=== PATIENT | female | born 1935 | race Caucasian/White ===

== ENCOUNTER 2020-12-31 17:50 | Emergency (ER) | payer MEDICARE, MEDICAID ==
[~2020-12-31] VITALS: Ht 165.1 cm; Wt 79.5 kg
[~2020-12-31 17:50] MED LIST: ATOR40TA PO; BUPR-94 PO; CELE200C PO; ESTR1TAB23 PO; LOSA1TAB3 PO; OMEP20CA15 PO; ONDA8TAB6 PO; SERT-153 PO
[2020-12-31] MEDS ORDERED: ondansetron/PF 4mg/2ml inj IV ONE (18:10)
[2020-12-31] MEDS ORDERED: normal saline 1000ml 1,000 ML IV ONE (18:10)
[2020-12-31 18:43] LABS: BASOPHILS % (AUTO) 0.4 % (0-1); EOSINOPHILS % (AUTO) 0.7 % (0-6); HEMATOCRIT 39.7 % (35.0-45.0); HEMOGLOBIN 13.2 g/dl (12.0-16.0); LYMPHOCYTES % (AUTO) 21.5 % (21-51); MEAN CORPUSCULAR HGB CONC 33.1 g/dL (33.0-36.5); MEAN CORPUSCULAR VOLUME 90.5 FL (78-98); MEAN PLATELET VOLUME 8.5 FL (7.4-10.4); MONOCYTES # (AUTO) 0.4 X10'3 (0-0.9); MONOCYTES % (AUTO) 7.7 % (2-12); NEUTROPHILS # (AUTO) 3.3 X10'3 (1.8-7.7); NEUTROPHILS % (AUTO) 69.7 % (42-75); PLATELET COUNT 199 X10'3 (140-440); RED BLOOD COUNT 4.39 X10'6 (4.20-5.60); RED CELL DISTRIBUTION WIDTH 13.7 % (11.5-14.5); WHITE BLOOD COUNT 4.7 X10'3 (4.5-11.0)
--- NOTE | 2020-12-31 18:53 | NUR ---
This signwriter is the break RN. IV NaCl 1 Litre established, patient was prepped for culture draw prior to pulling blood for labs, as a precaution. Patient tollerated IV well. One attempt, 20 ga to the right hand. IV Zofran given as ordered. Patient is cooperative. Daughter is at bedside.
[2020-12-31 18:57] LABS: ALANINE AMINOTRANSFERASE 13 U/L (12-78); ALBUMIN 3.3 G/DL (3.4-5.0); ALBUMIN/GLOBULIN RATIO 0.8 (1.1-1.5); ALKALINE PHOSPHATASE 108 IU/L (46-116); ANION GAP 12 (8-16); ASPARTATE AMINO TRANSFERASE 14 U/L (10-37); BILIRUBIN,TOTAL 0.4 MG/DL (0.1-1.0); BLOOD UREA NITROGEN 12 MG/DL (7-18); BUN/CREATININE RATIO 13.5 (6.6-38.0); CHLORIDE 104 MMOL/L (99-107); CREATININE 0.89 MG/DL (0.40-0.90); GLUCOSE 137 MG/DL (70-104); LIPASE 64 U/L (73-393); SODIUM 141 MMOL/L (135-145); TOTAL CARBON DIOXIDE 25.5 MMOL/L (24-32); TOTAL PROTEIN 7.4 G/DL (6.4-8.2); eGFR 60 ML/MIN
[2020-12-31 19:01] LABS: POTASSIUM 2.6 MMOL/L (3.5-5.1)
[2020-12-31] MEDS ORDERED: potassium Cl 20 mEq SR tablet PO ONE (19:05)
[2020-12-31] MEDS ORDERED: potassium Cl 10 mEq/100mL bag IV ONE (19:05)
[2020-12-31] MEDS ORDERED: ONDA4TAB6 PO (19:07)
[2020-12-31 19:55] LABS: CLARITY,URINE CLEAR (Clear); COLOR,URINE YELLOW (Yellow); GLUCOSE, URINE NEGATIVE (Neg); KETONES,URINE NEGATIVE (Neg); LEUKOCYTE ESTERASE ,URINE NEGATIVE (Neg); NITRITES, URINE NEGATIVE (Neg); OCCULT BLOOD,URINE NEGATIVE (Neg); PH,URINE 5.5 (4.8-8.0); PROTEIN,URINE TRACE mg/dl (Neg); UROBILINOGEN,URINE 0.2 E.U/dL (0.2-1.0)
[2020-12-31 20:05] LABS: UA COLLECTION TYPE CLN CATCH MIDSTREAM
[2020-12-31 20:08] LABS: BACTERIA,URINE NONE SEEN /HPF (Neg); RBC,URINE NONE SEEN /HPF (0-2); SQUAMOUS EPITHELIAL CELL,UR FEW /LPF (FEW); WBC,URINE NONE SEEN /HPF (0-4)
[2020-12-31 21:17] VITALS: BP 124/70
== END 2020-12-31 21:18 | disposition home or self-care (01) ==
LOC: ER 17:51
DX: A08.4 Viral intestinal infection, unspecified (principal); E87.6 Hypokalemia; J45.909 Unspecified asthma, uncomplicated; E78.00 Pure hypercholesterolemia, unspecified; Z88.8 Allergy status to other drugs, medicaments and biological substances; Z20.822 Contact with and (suspected) exposure to COVID-19
CPT/HCPCS: 36415; 71045; 80053; 81001; 83690; 85025; 87635; 96361; 96365; 96375; 99284; C9803; J2405; J3480; J7030

== ENCOUNTER 2021-07-11 16:38 | Emergency (ER) | payer MEDICARE, MEDICAID ==
[~2021-07-11] VITALS: Ht 162.6 cm; Wt 75.0 kg
[~2021-07-11 16:38] MED LIST changes: +ONDA4TAB6 PO
[2021-07-11 17:47] VITALS: BP 151/97
== END 2021-07-11 17:56 | disposition home or self-care (01) ==
LOC: ER 16:39
DX: M54.9 Dorsalgia, unspecified (principal); F03.91 Unspecified dementia, unspecified severity, with behavioral disturbance; E78.00 Pure hypercholesterolemia, unspecified; J44.9 Chronic obstructive pulmonary disease, unspecified; Z88.8 Allergy status to other drugs, medicaments and biological substances; Z91.041 Radiographic dye allergy status; Z79.899 Other long term (current) drug therapy; W19.XXXA Unspecified fall, initial encounter; Z91.81 History of falling; Y93.89 Activity, other specified; Y92.89 Other specified places as the place of occurrence of the external cause; Y99.8 Other external cause status
CPT/HCPCS: 99284

== ENCOUNTER 2021-11-18 20:16 | Emergency (ER) | payer MEDICARE, MEDICAID ==
[~2021-11-18] VITALS: Ht 165.1 cm; Wt 81.8 kg
[2021-11-18] MEDS ORDERED: normal saline 1000ML IV soln IVB ONE ×2 (21:35→22:30)
[2021-11-18 21:42] LABS: CLARITY,URINE CLEAR (Clear); COLOR,URINE YELLOW (Yellow); GLUCOSE, URINE NEGATIVE (Neg); KETONES,URINE NEGATIVE (Neg); LEUKOCYTE ESTERASE ,URINE NEGATIVE (Neg); NITRITES, URINE NEGATIVE (Neg); OCCULT BLOOD,URINE NEGATIVE (Neg); PROTEIN,URINE 30 mg/dl (Neg); UROBILINOGEN,URINE 0.2 E.U/dL (0.2-1.0)
[2021-11-18 21:43] LABS: UA COLLECTION TYPE CLN CATCH MIDSTREAM
[2021-11-18] MEDS ORDERED: ondansetron/PF 4mg/2ml inj IV ONE (21:45)
[2021-11-18 21:54] LABS: BASOPHILS % (AUTO) 0.3 % (0-1); EOSINOPHILS % (AUTO) 0 % (0-6); HEMOGLOBIN 13.2 g/dl (12.0-16.0); LYMPHOCYTES # (AUTO) 0.7 X10'3 (1.1-4.8); LYMPHOCYTES % (AUTO) 16.9 % (21-51); MEAN CORPUSCULAR HEMOGLOBIN 28.7 PG (27.0-31.0); MEAN CORPUSCULAR HGB CONC 32.9 g/dL (33.0-36.5); MEAN CORPUSCULAR VOLUME 87.3 FL (78-98); MEAN PLATELET VOLUME 9.7 FL (7.4-10.4); MONOCYTES % (AUTO) 22.4 % (2-12); NEUTROPHILS # (AUTO) 2.7 X10'3 (1.8-7.7); NEUTROPHILS % (AUTO) 60.4 % (42-75); PLATELET COUNT 139 X10'3 (140-440); RED BLOOD COUNT 4.59 X10'6 (4.20-5.60); RED CELL DISTRIBUTION WIDTH 14.2 % (11.5-14.5); WHITE BLOOD COUNT 4.4 X10'3 (4.5-11.0)
[2021-11-18 21:56] LABS: BACTERIA,URINE FEW /HPF (Neg); COARSE GRANULAR CAST 0-3 /LPF (NEGATIVE); RBC,URINE 0-2 /HPF (0-2); SQUAMOUS EPITHELIAL CELL,UR FEW /LPF (FEW); WBC,URINE 0-4 /HPF (0-4)
[2021-11-18 22:10] LABS: ALANINE AMINOTRANSFERASE 12 U/L (12-78); ALBUMIN 2.8 G/DL (3.4-5.0); ALBUMIN/GLOBULIN RATIO 0.6 (1.1-1.5); ALKALINE PHOSPHATASE 81 IU/L (46-116); ANION GAP 11 (8-16); ASPARTATE AMINO TRANSFERASE 28 U/L (10-37); BILIRUBIN,TOTAL 0.3 MG/DL (0.1-1.0); BLOOD UREA NITROGEN 19 MG/DL (7-18); BUN/CREATININE RATIO 14.8 (6.6-38.0); CALCIUM 7.9 MG/DL (8.5-10.1); CHLORIDE 104 MMOL/L (99-107); CREATININE 1.28 MG/DL (0.40-0.90); GLUCOSE 158 MG/DL (70-104); LIPASE 108 U/L (73-393); POTASSIUM 3.3 MMOL/L (3.5-5.1); SODIUM 138 MMOL/L (135-145); TOTAL CARBON DIOXIDE 23.5 MMOL/L (24-32); TOTAL PROTEIN 7.3 G/DL (6.4-8.2); eGFR 40 ML/MIN
[2021-11-18] MEDS ORDERED: loperamide 2mg capsule PO ONE (22:30)
[2021-11-18] MEDS ORDERED: pantoprazole 40MG/NS 100ML BAG 100 ML IV ONE (22:55)
--- NOTE | 2021-11-18 23:20 | NUR ---
Pt pink, alert, no acute/resp distress. PIV site c/d/i s complication, adverse, or infilitration. Family at bedside. Bed in lowest position, wheels locked, rail 2/2 up. Pt laying supine, able to move in bed prn.
[2021-11-18 23:22] LABS: PLATELET ESTIMATE DECREASED; TOTAL CELLS COUNTED 100
[2021-11-19] MEDS ORDERED: acetaminophen 325mg tablet PO ONE (00:50)
[2021-11-19] MEDS ORDERED: predniSONE 20 mg tablet PO ONE (01:10)
[2021-11-19] MEDS ORDERED: ondansetron 4mg rapidly disintigrating tab PO ONE (01:10)
[2021-11-19] MEDS ORDERED: BEBTELOVIMAB 175 MG/2 ML VIAL IV ONE (01:10)
[2021-11-19] MEDS ORDERED: diphenhydrAMINE 50 mg/ml inj IV PRN (01:10)
[2021-11-19] MEDS ORDERED: hydrocortisone sod succ/PF 100mg/2ml inj. IV PRN (01:10)
[2021-11-19] MEDS ORDERED: epiNEPHrine 1 mg/ml inj IM PRN (01:10)
[2021-11-19] MEDS ORDERED: albuterol 2.5 MG/3 ML nebule NEB PRN (01:10)
[2021-11-19] MEDS ORDERED: famotidine/PF 10 mg/ml inj IV PRN (01:10)
[2021-11-19] MEDS ORDERED: acetaminophen 325mg tablet PO PRN (01:10)
[2021-11-19] MEDS ORDERED: LOPE2CAP PO (01:15)
[2021-11-19] MEDS ORDERED: ONDA8TAB13 PO (01:15)
[2021-11-19] MEDS ORDERED: DEXA4TAB67 PO (01:15)
[2021-11-19 03:21] VITALS: BP 135/78
--- NOTE | 2021-11-20 08:16 | NUR ---
Spoke with Dr. leyva regarding blood culture results, he stated that at this point it was to soon to tell if it was a contaminate or not so we need to wait til the sensitive report. Nothing to do at this point.
== END 2021-11-19 03:23 | disposition home or self-care (01) ==
LOC: ER 20:17
DX: U07.1 COVID-19 (principal); R53.1 Weakness; E78.00 Pure hypercholesterolemia, unspecified; J44.9 Chronic obstructive pulmonary disease, unspecified; E03.9 Hypothyroidism, unspecified; Z90.710 Acquired absence of both cervix and uterus; Z88.8 Allergy status to other drugs, medicaments and biological substances; Z91.041 Radiographic dye allergy status; Z79.899 Other long term (current) drug therapy
CPT/HCPCS: 36415; 71045; 80053; 81001; 83605; 83690; 84145; 84484; 85007; 85025; 87040; 87077; 87186; 87502; 87503; 87635; 93005; 96361; 96374; 96375; 99285; C9113; C9803; J2405; J7030; J7512; M0222; Q0222; 96365

== ENCOUNTER 2021-11-24 08:29 | Inpatient (IN) | payer MEDICARE, MEDICAID ==
[~2021-11-24] VITALS: Ht 166.4 cm; Wt 65.9 kg
[~2021-11-24 08:29] MED LIST changes: +DEXA4TAB67 PO; +LOPE2CAP PO; +ONDA8TAB13 PO
[2021-11-24] MEDS ORDERED: normal saline 1000ML IV soln IVB ONE ×2 (08:55→10:45)
--- NOTE | 2021-11-24 09:02 | NUR ---
Patient given two warm blankets.
[2021-11-24 09:12] LABS: BASOPHILS % (AUTO) 0.2 % (0-1); EOSINOPHILS % (AUTO) 0 % (0-6); HEMATOCRIT 37.8 % (35.0-45.0); HEMOGLOBIN 12.6 g/dl (12.0-16.0); LYMPHOCYTES # (AUTO) 0.9 X10'3 (1.1-4.8); MEAN CORPUSCULAR HEMOGLOBIN 28.4 PG (27.0-31.0); MEAN CORPUSCULAR HGB CONC 33.2 g/dL (33.0-36.5); MEAN CORPUSCULAR VOLUME 85.5 FL (78-98); MEAN PLATELET VOLUME 9.6 FL (7.4-10.4); MONOCYTES # (AUTO) 2.1 X10'3 (0-0.9); MONOCYTES % (AUTO) 11.7 % (2-12); NEUTROPHILS # (AUTO) 14.6 X10'3 (1.8-7.7); NEUTROPHILS % (AUTO) 83.1 % (42-75); PLATELET COUNT 161 X10'3 (140-440); RED BLOOD COUNT 4.42 X10'6 (4.20-5.60); RED CELL DISTRIBUTION WIDTH 13.8 % (11.5-14.5); WHITE BLOOD COUNT 17.6 X10'3 (4.5-11.0)
[2021-11-24 09:23] LABS: ALBUMIN 2.3 G/DL (3.4-5.0); ANION GAP 12 (8-16); BILIRUBIN,TOTAL 0.9 MG/DL (0.1-1.0); BLOOD UREA NITROGEN 16 MG/DL (7-18); BUN/CREATININE RATIO 16.3 (6.6-38.0); CHLORIDE 105 MMOL/L (99-107); CREATININE 0.98 MG/DL (0.40-0.90); GLUCOSE 102 MG/DL (70-104); SODIUM 141 MMOL/L (135-145); TOTAL CARBON DIOXIDE 24.1 MMOL/L (24-32); TOTAL PROTEIN 6.9 G/DL (6.4-8.2); eGFR 54 ML/MIN
[2021-11-24 09:24] LABS: ALANINE AMINOTRANSFERASE 16 U/L (12-78); ALBUMIN/GLOBULIN RATIO 0.5 (1.1-1.5); ALKALINE PHOSPHATASE 79 IU/L (46-116); ASPARTATE AMINO TRANSFERASE 25 U/L (10-37)
[2021-11-24] MEDS ORDERED: azithromycin/NS 500mg/250ml 250 ML IV ONE (09:25)
[2021-11-24] MEDS ORDERED: CefTRIAXone 2gm/D5W 50ml BAG 50 ML IV ONE (09:25)
[2021-11-24 09:31] LABS: POTASSIUM 2.6 MMOL/L (3.5-5.1)
[2021-11-24] MEDS ORDERED: CefTRIAXone 2gm/NS 100ml IVPB 100 ML IV ONE ×2 (09:34→09:36)
[2021-11-24] MEDS ORDERED: potassium Cl 20 mEq SR tablet PO ONE (09:35)
[2021-11-24 09:44] LABS: MAGNESIUM 1.3 MG/DL (1.5-2.4)
[2021-11-24] MEDS ORDERED: diltiazem 5mg/ml 5ml inj. IV ONE ×2 (10:05→11:20)
[2021-11-24] MEDS ORDERED: magnesium 2GM in 50ml NS 50 ML IV ONE (10:05)
[2021-11-24 10:17] LABS: CLARITY,URINE CLOUDY (Clear); COLOR,URINE YELLOW (Yellow); GLUCOSE, URINE NEGATIVE (Neg); KETONES,URINE TRACE mg/dl (Neg); LEUKOCYTE ESTERASE ,URINE NEGATIVE (Neg); NITRITES, URINE NEGATIVE (Neg); OCCULT BLOOD,URINE NEGATIVE (Neg); PROTEIN,URINE 100 mg/dl (Neg)
[2021-11-24 10:19] LABS: UA COLLECTION TYPE STRAIGHT CATH
[2021-11-24 10:30] LABS: SQUAMOUS EPITHELIAL CELL,UR FEW /LPF (FEW)
[2021-11-24 10:31] LABS: BACTERIA,URINE 4+ /HPF (Neg); RBC,URINE 0-2 /HPF (0-2); WBC,URINE 0-4 /HPF (0-4)
[2021-11-24] MEDS ORDERED: acetaminophen 325mg tablet PO PRN ×2 (10:40)
[2021-11-24] MEDS ORDERED: HYDROcodone/acetaminophen 10/325mg tab PO PRN (10:40)
[2021-11-24] MEDS ORDERED: magnesium Cl slow-release 64mg tablet PO PRN (10:40)
[2021-11-24] MEDS ORDERED: mag hydrox/Alum hydrox/simeth 30ml oral suspension PO PRN (10:40)
[2021-11-24] MEDS ORDERED: magnesium 2GM in 50ml NS 50 ML IV PRN (10:40)
[2021-11-24] MEDS ORDERED: magnesium 4gm in 100ml NS 100 ML IV PRN (10:40)
[2021-11-24] MEDS ORDERED: ipratropium/albuterol 3ml nebule NEB PRN (10:40)
[2021-11-24] MEDS ORDERED: ondansetron/PF 4mg/2ml inj IV PRN (10:40)
[2021-11-24] MEDS ORDERED: HYDROcodone/acetaminophen 5mg/325mg tablet PO PRN (10:40)
[2021-11-24] MEDS ORDERED: POTASSIUM BICARB 20meq eff tab 20 MEQ TABLET.EFF PO PRN ×2 (10:40)
[2021-11-24] MEDS ORDERED: magnesium hydroxide 30ml (MOM) UD suspension PO PRN (10:40)
[2021-11-24 11:09] LABS: PLATELET ESTIMATE NORMAL; TOTAL CELLS COUNTED 100
[2021-11-24 11:13] LABS: BURR CELLS FEW; ELLIPTOCYTES FEW
[2021-11-24 11:23] LABS: HEMOGLOBIN A1C 6.6 % (4.5-6.2)
[2021-11-24] MEDS: potassium CL 10mEq/100ml bag 100 ML IV SCH ×2 (11:36→12:59)
--- NOTE | 2021-11-24 14:05 | NUR ---
Pt had a orange/brown liquid BM.
[2021-11-24] MEDS ORDERED: MONT10TA21 PO (15:40)
[2021-11-24] MEDS ORDERED: LOPE2CAP PO (16:36)
[2021-11-24] MEDS ORDERED: ONDA8TAB6 PO (16:36)
[2021-11-24] MEDS: methylPREDNISolone sod succ 125mg/2ml vial IV SCH ×2 (16:54→23:26)
[2021-11-24] MEDS: K and/or MAG REPLACEMENT MC SCH (20:00)
[2021-11-24] MEDS: docusate sod 100mg capsule PO SCH (20:00)
--- NOTE | 2021-11-24 20:15 | NUR ---
The patient, OFELIA HUSSEIN, 86 y/o, F admitted by ELIEZER TRAORE MD, was given verbal information regarding hospital policies, unit procedures and contact persons. Patient arrived at 20:10 via stretcher from ED, with 5L via nasal canula, two peripheral IVs and incontinent of stool. Patient placed on droplet and contact precautions. See Admission information.
[2021-11-24 20:30] VITALS: BP 148/84
[2021-11-24] MEDS: potassium CL 10mEq/100ml bag 100 ML IV PRN ×3 (21:01→23:27)
[2021-11-24 22:00] VITALS: BP 147/82
[2021-11-25] VITALS (8 sets, daily range): BP systolic 144–177; BP diastolic 72–105
[2021-11-25] MEDS: potassium CL 10mEq/100ml bag 100 ML IV PRN (01:21)
[2021-11-25 06:15] LABS: BASOPHILS % (AUTO) 0.1 % (0-1); EOSINOPHILS % (AUTO) 0 % (0-6); HEMOGLOBIN 11.8 g/dl (12.0-16.0); LYMPHOCYTES # (AUTO) 0.5 X10'3 (1.1-4.8); LYMPHOCYTES % (AUTO) 4.5 % (21-51); MEAN CORPUSCULAR HEMOGLOBIN 28.6 PG (27.0-31.0); MEAN CORPUSCULAR HGB CONC 32.9 g/dL (33.0-36.5); MEAN PLATELET VOLUME 10.5 FL (7.4-10.4); MONOCYTES # (AUTO) 0.3 X10'3 (0-0.9); MONOCYTES % (AUTO) 2.4 % (2-12); NEUTROPHILS # (AUTO) 10.3 X10'3 (1.8-7.7); PLATELET COUNT 140 X10'3 (140-440); RED BLOOD COUNT 4.13 X10'6 (4.20-5.60); RED CELL DISTRIBUTION WIDTH 14.2 % (11.5-14.5); WHITE BLOOD COUNT 11.1 X10'3 (4.5-11.0)
--- NOTE | 2021-11-25 06:18 | NUR ---
Problems reprioritized. Patient report given, questions answered & plan of care reviewed with DERICK Oakes.
[2021-11-25 06:26] LABS: ALANINE AMINOTRANSFERASE 14 U/L (12-78); ALBUMIN 2.1 G/DL (3.4-5.0); ALBUMIN/GLOBULIN RATIO 0.5 (1.1-1.5); ALKALINE PHOSPHATASE 76 IU/L (46-116); ANION GAP 13 (8-16); ASPARTATE AMINO TRANSFERASE 17 U/L (10-37); BILIRUBIN,TOTAL 0.5 MG/DL (0.1-1.0); BLOOD UREA NITROGEN 22 MG/DL (7-18); BUN/CREATININE RATIO 27.2 (6.6-38.0); CALCIUM 7.6 MG/DL (8.5-10.1); CHLORIDE 109 MMOL/L (99-107); CHOL/HDL RATIO 1.8 (0.00-4.99); CHOLESTEROL 99 MG/DL (0-200); CREATININE 0.81 MG/DL (0.40-0.90); GLUCOSE 164 MG/DL (70-104); HDL CHOLESTEROL 56 MG/DL (35-60); LDL CHOLESTEROL 27 MG/DL (50-100); MAGNESIUM 1.5 MG/DL (1.5-2.4); POTASSIUM 3.7 MMOL/L (3.5-5.1); SODIUM 142 MMOL/L (135-145); TOTAL CARBON DIOXIDE 19.7 MMOL/L (24-32); TOTAL PROTEIN 6.7 G/DL (6.4-8.2); TRIGLYCERIDES 76 MG/DL (20-135); eGFR 67 ML/MIN
[2021-11-25] MEDS: docusate sod 100mg capsule PO SCH ×2 (08:00→19:14)
[2021-11-25] MEDS: K and/or MAG REPLACEMENT MC SCH ×2 (08:00→18:07)
[2021-11-25] MEDS: azithromycin/NS 500mg/250ml 250 ML IV SCH (08:00)
[2021-11-25] MEDS ORDERED: enoxaparin 40mg/0.4ml syringe SUBCUT SCH (08:00)
[2021-11-25] MEDS: methylPREDNISolone sod succ 125mg/2ml vial IV SCH ×3 (08:01→23:16)
[2021-11-25] MEDS: cefTRIAXone 1g/NS 100ml IVPB 100 ML IV SCH (08:01)
[2021-11-26] VITALS (7 sets, daily range): BP systolic 146–168; BP diastolic 74–96
[2021-11-26 06:12] LABS: EOSINOPHILS % (AUTO) 0 % (0-6); MEAN CORPUSCULAR HGB CONC 33.7 g/dL (33.0-36.5); MONOCYTES # (AUTO) 0.5 X10'3 (0-0.9); MONOCYTES % (AUTO) 4.8 % (2-12); PLATELET COUNT 167 X10'3 (140-440); RED CELL DISTRIBUTION WIDTH 14.1 % (11.5-14.5)
[2021-11-26 06:15] LABS: BASOPHILS % (AUTO) 0.4 % (0-1); HEMATOCRIT 35.9 % (35.0-45.0); HEMOGLOBIN 12.1 g/dl (12.0-16.0); LYMPHOCYTES # (AUTO) 0.4 X10'3 (1.1-4.8); LYMPHOCYTES % (AUTO) 4.6 % (21-51); MEAN PLATELET VOLUME 9.6 FL (7.4-10.4); NEUTROPHILS # (AUTO) 8.6 X10'3 (1.8-7.7); NEUTROPHILS % (AUTO) 90.2 % (42-75); RED BLOOD COUNT 4.18 X10'6 (4.20-5.60); WHITE BLOOD COUNT 9.6 X10'3 (4.5-11.0)
[2021-11-26 06:27] LABS: ALANINE AMINOTRANSFERASE 11 U/L (12-78); ALBUMIN/GLOBULIN RATIO 0.5 (1.1-1.5); ALKALINE PHOSPHATASE 70 IU/L (46-116); ANION GAP 10 (8-16); BILIRUBIN,TOTAL 0.4 MG/DL (0.1-1.0); BLOOD UREA NITROGEN 23 MG/DL (7-18); BUN/CREATININE RATIO 34.3 (6.6-38.0); CALCIUM 7.7 MG/DL (8.5-10.1); CHLORIDE 105 MMOL/L (99-107); CREATININE 0.67 MG/DL (0.40-0.90); GLUCOSE 220 MG/DL (70-104); MAGNESIUM 1.6 MG/DL (1.5-2.4); SODIUM 137 MMOL/L (135-145); TOTAL PROTEIN 6.4 G/DL (6.4-8.2); eGFR 84 ML/MIN
[2021-11-26 06:29] LABS: ASPARTATE AMINO TRANSFERASE 22 U/L (10-37); POTASSIUM 3.7 MMOL/L (3.5-5.1)
[2021-11-26 06:36] LABS: BURR CELLS 1+; ELLIPTOCYTES FEW; PLATELET ESTIMATE NORMAL; TOTAL CELLS COUNTED 100
--- NOTE | 2021-11-26 07:00 | NUR ---
Patient in room PCU 3008. I have received report from DERICK Martinez and had the opportunity to ask questions and assume patient care.
--- NOTE | 2021-11-26 07:08 | NUR ---
Problems reprioritized. Patient report given, questions answered & plan of care reviewed with DERICK Botello.
[2021-11-26] MEDS: docusate sod 100mg capsule PO SCH ×2 (08:00→19:51)
[2021-11-26] MEDS: K and/or MAG REPLACEMENT MC SCH ×2 (08:00→19:43)
--- NOTE | 2021-11-26 08:47 | NUR ---
Noted pt with a low Sam of 12. Per RN skin assessment skin is intact. Will continue to follow closely and make recommendations as appropriate. Addendum: 11/26/21 at [address] Amended: Links added.
[2021-11-26] MEDS: cefTRIAXone 1g/NS 100ml IVPB 100 ML IV SCH (12:11)
[2021-11-26] MEDS: methylPREDNISolone sod succ 125mg/2ml vial IV SCH ×3 (12:12→23:29)
[2021-11-26] MEDS: azithromycin/NS 500mg/250ml 250 ML IV SCH (12:12)
[2021-11-26] MEDS: hydrALAZINE 20mg/ml inj. IV PRN (12:12)
--- NOTE | 2021-11-26 15:02 | NUR ---
please have nursing take photo of fissure to gluteal crease Addendum: 11/26/21 at 1516 by Abbey Del Rio RN Amended: Links added.
[2021-11-26] MEDS ORDERED: REMDESIVIR 200 MG in NS 100ml IVPB Loading dose IV ONE (18:05)
--- NOTE | 2021-11-26 18:30 | NUR ---
Problems reprioritized. Patient report given, questions answered & plan of care reviewed with DERICK Clayton.
[2021-11-26] MEDS ORDERED: enoxaparin 40mg/0.4ml syringe SUBCUT SCH (20:00)
[2021-11-27 02:00] VITALS: BP 174/90
--- NOTE | 2021-11-27 06:40 | NUR ---
Patient in room PCU 3008. I have received report from DERICK Clayton and had the opportunity to ask questions and assume patient care.
--- NOTE | 2021-11-27 06:43 | NUR ---
Problems reprioritized. Patient report given, questions answered & plan of care reviewed with DERICK Botello.
[2021-11-27 07:00] VITALS: BP 173/95
[2021-11-27 07:29] LABS: BASOPHILS % (AUTO) 0.1 % (0-1); EOSINOPHILS % (AUTO) 0 % (0-6); HEMATOCRIT 33.3 % (35.0-45.0); HEMOGLOBIN 11.1 g/dl (12.0-16.0); LYMPHOCYTES # (AUTO) 0.4 X10'3 (1.1-4.8); LYMPHOCYTES % (AUTO) 6.1 % (21-51); MEAN CORPUSCULAR HEMOGLOBIN 28.5 PG (27.0-31.0); MEAN CORPUSCULAR HGB CONC 33.4 g/dL (33.0-36.5); MEAN CORPUSCULAR VOLUME 85.5 FL (78-98); MEAN PLATELET VOLUME 9.7 FL (7.4-10.4); MONOCYTES # (AUTO) 0.4 X10'3 (0-0.9); NEUTROPHILS # (AUTO) 5.6 X10'3 (1.8-7.7); NEUTROPHILS % (AUTO) 87.8 % (42-75); PLATELET COUNT 161 X10'3 (140-440); RED CELL DISTRIBUTION WIDTH 13.9 % (11.5-14.5); WHITE BLOOD COUNT 6.4 X10'3 (4.5-11.0)
[2021-11-27 07:49] LABS: ALANINE AMINOTRANSFERASE 14 U/L (12-78); ALBUMIN 1.9 G/DL (3.4-5.0); ALBUMIN/GLOBULIN RATIO 0.5 (1.1-1.5); ALKALINE PHOSPHATASE 61 IU/L (46-116); ANION GAP 9 (8-16); ASPARTATE AMINO TRANSFERASE 16 U/L (10-37); BILIRUBIN,TOTAL 0.3 MG/DL (0.1-1.0); BLOOD UREA NITROGEN 19 MG/DL (7-18); BUN/CREATININE RATIO 28.8 (6.6-38.0); CALCIUM 7.5 MG/DL (8.5-10.1); CHLORIDE 107 MMOL/L (99-107); CREATININE 0.66 MG/DL (0.40-0.90); GLUCOSE 178 MG/DL (70-104); MAGNESIUM 1.5 MG/DL (1.5-2.4); SODIUM 139 MMOL/L (135-145); TOTAL CARBON DIOXIDE 22.6 MMOL/L (24-32); TOTAL PROTEIN 5.9 G/DL (6.4-8.2); eGFR 85 ML/MIN
[2021-11-27 08:03] LABS: PLATELET ESTIMATE NORMAL; TOTAL CELLS COUNTED 100
[2021-11-27 08:04] LABS: ELLIPTOCYTES FEW; MICROCYTOSIS 1+
[2021-11-27] MEDS: K and/or MAG REPLACEMENT MC SCH (09:57)
[2021-11-27] MEDS: cefTRIAXone 1g/NS 100ml IVPB 100 ML IV SCH (10:09)
[2021-11-27] MEDS: docusate sod 100mg capsule PO SCH (10:10)
[2021-11-27] MEDS: azithromycin/NS 500mg/250ml 250 ML IV SCH (10:10)
[2021-11-27] MEDS: methylPREDNISolone sod succ 125mg/2ml vial IV SCH (10:10)
[2021-11-27] MEDS: hydrALAZINE 20mg/ml inj. IV PRN (10:10)
[2021-11-27 11:00] VITALS: BP 114/66
[2021-11-27] MEDS ORDERED: losartan 50mg tablet PO SCH (11:00)
--- NOTE | 2021-11-27 13:53 | NUR ---
I SPOKE WITH PATIENT'S DAUGHTER IN PRESENCE OF PRIMARY RN-OTILIA DAUGHTER WISHES PATIENT TO BE PLACED ON COMFORT CARE. DR QUICK NOTIFIED.
--- NOTE | 2021-11-27 18:30 | NUR ---
Problems reprioritized. Patient report given, questions answered & plan of care reviewed with DERICK Jackson.
[2021-11-27] MEDS ORDERED: REMDESIVIR INJ 100 MG in normal saline 100ml IV soln 100 ML IV SCH (19:00)
[2021-11-27] MEDS ORDERED: dexamethasone 4mg/ml inj IM SCH (20:00)
--- NOTE | 2021-11-28 06:20 | NUR ---
Patient in room PCU 3008. I have received report from DERICK Jackson and had the opportunity to ask questions and assume patient care.
[2021-11-28] MEDS ORDERED: azithromycin 250mg tablet PO SCH (08:00)
--- NOTE | 2021-11-28 18:35 | NUR ---
Problems reprioritized. Patient report given, questions answered & plan of care reviewed with DERICK Jackson.
--- NOTE | 2021-11-28 20:23 | NUR ---
Esther liu MD (Dr. Chau) at 2021 regarding the need for pain meds. Patient is comfort care and states she is in pain and uncomfortable.
[2021-11-29 02:27] VITALS: BP 136/89
--- NOTE | 2021-11-29 06:38 | NUR ---
Problems reprioritized. Patient report given, Nevaeh SEPULVEDA, questions answered & plan of care reviewed with .
--- NOTE | 2021-11-29 12:35 | NUR ---
Patient continues to have a low Sam score. Wound care deferred today secondary to the family's wishes that there wound not be any turning or repositioning with the exception of making the patient more comfortable. Wound care will continue to monitor her progress. Addendum: 11/29/21 at 1248 by Nevaeh Coombs LVN Amended: Links added.
[2021-11-29 21:00] VITALS: BP 128/77
[2021-11-29] MEDS: morphine 2 MG/ML inj. syringe IV PRN (21:50)
--- NOTE | 2021-11-29 22:32 | NUR ---
Celine care completed, bed linens changed. Pt voiced she is in pain. Administered PRN morphine per order. Pt made comfortable in bed.
--- NOTE | 2021-11-30 06:13 | NUR ---
Problems reprioritized. Patient report given, Nevaeh SEPULVEDA, questions answered & plan of care reviewed with .
[2021-11-30] MEDS: morphine 2 MG/ML inj. syringe IV PRN (19:19)
--- NOTE | 2021-12-01 10:05 | NUR ---
1000 pt discharged by ambulance, left at 1000. Pt a/ox3, forgetful at times. BM this morning. Right hand painful to touch from IV that went bad. Pt cleaned and brief placed on patient prior to discharge. No personal belongings in room. Family called. discharge packet sent with transporters. IV removed intact from right forearm.
== END 2021-12-01 10:02 | disposition hospice, home (50) | DRG 871 ==
LOC: ER 08:30 → ED HOLD 10:47 → PCU 3S 20:10
PROVIDERS: ADMIT Internal Medicine; ATTEND Internal Medicine
PROC: XW033E5 Introduction of Remdesivir Anti-infective into Peripheral Vein, Percutaneous Approach, New Technology Group 5 (ICD-10-PCS; principal; 2021-11-26)
DX: A41.9 Sepsis, unspecified organism (principal); U07.1 COVID-19; J12.82 Pneumonia due to coronavirus disease 2019; J96.01 Acute respiratory failure with hypoxia; J44.0 Chronic obstructive pulmonary disease with (acute) lower respiratory infection; F05 Delirium due to known physiological condition; F02.81 Dementia in other diseases classified elsewhere, unspecified severity, with behavioral disturbance; E78.00 Pure hypercholesterolemia, unspecified; E87.6 Hypokalemia; E78.5 Hyperlipidemia, unspecified; Z66 Do not resuscitate; F32.A Depression, unspecified; G30.9 Alzheimer's disease, unspecified; I10 Essential (primary) hypertension; I48.0 Paroxysmal atrial fibrillation; Z28.310 Unvaccinated for COVID-19; Z74.01 Bed confinement status; Z90.710 Acquired absence of both cervix and uterus; Z88.0 Allergy status to penicillin; Z91.041 Radiographic dye allergy status; Z80.9 Family history of malignant neoplasm, unspecified; Z84.89 Family history of other specified conditions; Z79.899 Other long term (current) drug therapy; Z51.5 Encounter for palliative care
CPT/HCPCS: 36415; 71045; 80053; 80061; 81001; 83036; 83605; 83735; 84145; 84484; 85007; 85025; 87040; 87077; 87081; 87088; 87635; 93005; 93306; 96361; 96365; 99291; G0378; J0360; J0456; J0696; J1650; J2270; J2930; J3475; J3480; J3490; J7030